=== PATIENT | female | born 1975 | race African-American/Black ===

== ENCOUNTER 2016-09-01 21:01 | Emergency (ER) | payer MEDICARE, MEDICAID ==
--- NOTE | 2016-09-01 21:29 | ER Document Report ---
ED Medical Screen (RME) - General Stated Complaint: BOWEL CONCERNS Notes: patient is a 41 year old female with previous history of constipation with SBO. Patient admits to abdominal pain with distension, vomiting. Last Bm was two weeks ago. has been taking PO OTC agents which havent helped I have greeted and performed a rapid initial assessment of this patient. A comprehensive ED assessment and evaluation of the patient, analysis of test results and completion of the medical decision making process will be conducted by additional ED providers.
[2016-09-01] MEDS ORDERED: ONDANSETRON 4 MG TAB.RAPDIS PO ONE (21:30)
--- NOTE | 2016-09-01 22:49 | ER Document Report ---
ED GI/ - General Chief Complaint: Abdominal Pain Stated Complaint: BOWEL CONCERNS Time seen by provider: 22:49 Mode of Arrival: Ambulatory Information source: Patient Notes: 41 yo female c/o generalized abd. pain 4/5, sharp, constant, more on the right side getting worse for 3 weeks. Started at umbilicus and settled on the right side the most, but duller on the left. Constipation dx by her gastric bypass 8- , 3. days ago based on the sever obstipation on the xray. She was referred to GI MD but not seen yet. He was worried that she may need partial colectomy. Only had small ball in 3 weeks. No fever. Now vomiting when tries to eat, stays down only 5 minutes. C section 1990. Hx htn. left port a cath due to bad veins. LMP 1.5 weeks ago (condoms) TRAVEL OUTSIDE OF THE [place] IN LAST 30 DAYS: No - Related Data Allergies/Adverse Reactions: No Known Allergies Allergy (Unverified 09/01/16 21:30) Past Medical History - General Information source: Patient - Social History Smoking Status: Never Smoker Chew tobacco use (# tins/day): No Frequency of alcohol use: None Drug Abuse: None Lives with: Spouse/Significant other Family History: Reviewed & Not Pertinent Patient has suicidal ideation: No Patient has homicidal ideation: No - Past Medical History Cardiac Medical History: Reports: Hx Hypertension Renal/ Medical History: Denies: Hx Peritoneal Dialysis Past Surgical History: Reports: Hx Section, Hx Gastric Bypass Surgery Review of Systems - Review of Systems Constitutional: No symptoms reported EENT: No symptoms reported Cardiovascular: No symptoms reported Respiratory: No symptoms reported Gastrointestinal: See HPI Genitourinary: No symptoms reported Female Genitourinary: No symptoms reported Musculoskeletal: No symptoms reported Skin: No symptoms reported Hematologic/Lymphatic: No symptoms reported Neurological/Psychological: No symptoms reported Physical Exam - Vital signs Vitals: Temp Pulse BP Pulse Ox 98.3 F 78 152/76 H 100 09/01/16 21:24 09/01/16 21:24 09/01/16 21:24 09/01/16 21:24 Interpretation: Normal - General General appearance: Appears well, Alert - HEENT Head: Normocephalic, Atraumatic Eyes: Normal Pupils: PERRL - Respiratory Respiratory status: No respiratory distress Chest status: Nontender Breath sounds: Normal Chest palpation: Normal - Cardiovascular Rhythm: Regular Heart sounds: Normal auscultation Murmur: No - Abdominal Inspection: Normal Distension: No distension. No: Distended Bowel sounds: Normal Tenderness: Tender - dram Organomegaly: No organomegaly. No: Hepatomegaly, Splenomegaly - Back Back: Normal, Nontender. No: CVA tenderness - Extremities General upper extremity: Normal inspection, Nontender, Normal color, Normal ROM , Normal temperature General lower extremity: Normal inspection, Nontender, Normal color, Normal ROM , Normal temperature, Normal weight bearing. No: Arnie's sign - Neurological Neuro grossly intact: Yes Cognition: Normal Orientation: AAOx4 [place] Coma Scale Eye Opening: Spontaneous [place] Coma Scale Verbal: Oriented [place] Coma Scale Motor: Obeys Commands [place] Coma Scale Total: 15 Speech: Normal Motor strength normal: LUE, RUE, LLE, RLE Sensory: Normal - Psychological Associated symptoms: Normal affect, Normal mood - Skin Skin Temperature: Warm Skin Moisture: Dry Skin Color: Normal Course - Re-evaluation Re-evalutation: 09/01/16 23:40 consult tori salazar for CT abd and pelvis 09/02/16 00:20 CBC is normal, specific gravity of urine is 1.015, test is negative. 09/02/16 03:17 CT scan is negative. There is no obstruction or appendicitis no free fluid. This to the patient and she will follow-up with her gastric bypass doctor and we have talked about starting MiraLAX every day - Vital Signs Vital signs: Temp Pulse Resp BP Pulse Ox 98.3 F 78 16 152/76 H 100 09/01/16 21:27 09/01/16 21:27 09/01/16 21:27 09/01/16 21:27 09/01/16 21:27 - Laboratory Result Diagrams: 09/01/16 23:35 09/01/16 23:35 Laboratory results interpreted by me: 09/01/16 09/01/16 23:35 23:35 Hgb 10.8 L Hct 32.7 L MCV 76 L MCH 24.9 L RDW 16.0 H Seg Neutrophils % 41.3 L Chloride 109 H Discharge - Discharge Clinical Impression: Abdominal pain Qualifiers: Abdominal location: generalized Qualified Code(s): R10.84 - Generalized abdominal pain Condition: Good Disposition: HOME, SELF-CARE Instructions: Abdominal Pain ([facility]) Additional Instructions: Take one capful of MiraLAX daily mixed with water Plenty of water daily Return to the emergency room if worse Copy of lab work and CT scan given to you. Please complete the patient satisfaction survey if you get one, and return it.. If you do not receive a survey, then you can go to the [facility] website, [email or web address] and place your comments about your very good care. Thank you very much. It was a pleasure being your medical provider today.
[2016-09-01] MEDS ORDERED: NORMAL SALINE 1000 ML 1,000 ML IV ONE (23:00)
[2016-09-01 23:43] LABS: APPEARANCE,URINE CLEAR; BILIRUBIN,URINE NEGATIVE (NEGATIVE); GLUCOSE, URINE NEGATIVE (NEGATIVE); KETONES,URINE NEGATIVE (NEGATIVE); LEUKOCYTE ESTERASE,URINE NEGATIVE (NEGATIVE); NITRITE,URINE NEGATIVE (NEGATIVE); PROTEIN,URINE NEGATIVE (NEGATIVE); URINE SPECIFIC GRAVITY 1.015; UROBILINOGEN,URINE NEGATIVE mg/dL (<2.0)
[2016-09-01 23:55] LABS: ABSOLUTE BASOPHILS # (AUTO) 0.1 10^3/uL (0.0-0.2); ABSOLUTE EOSINOPHILS # (AUTO) 0.3 10^3/uL (0.0-0.6); ABSOLUTE LYMPHOCYTES (AUTO) 2.2 10^3/uL (0.5-4.7); ABSOLUTE MONOCYTES (AUTO) 0.5 10^3/uL (0.1-1.4); ABSOLUTE NEUT (AUTO) 2.1 10^3/uL (1.7-8.2); BASOPHILS % (AUTO) 1.2 % (0-2); EOSINOPHILS % (AUTO) 5.1 % (0-6); HEMATOCRIT 32.7 % (36.0-47.0); HEMOGLOBIN 10.8 g/dL (12.0-15.5); HGB HCT DIFFERENCE -0.3; LYMPHOCYTES % (AUTO) 42.9 % (13-45); MEAN CORPUSCULAR HEMOGLOBIN 24.9 pg (27.0-33.4); MEAN CORPUSCULAR HGB CONC 32.9 g/dL (32.0-36.0); MEAN CORPUSCULAR VOLUME 76 fl (80-97); MONOCYTES % (AUTO) 9.5 % (3-13); RED BLOOD COUNT 4.32 10^6/uL (3.72-5.28); SEGMENTED NEUTROPHILS % (AUTO) 41.3 % (42-78); WHITE BLOOD COUNT 5.1 10^3/uL (4.0-10.5)
[2016-09-02] MEDS ORDERED: ONDANSETRON HCL INJ/PF 4 MG/2 ML SDV IV ONE (00:47)
[2016-09-02] MEDS ORDERED: MORPHINE SULFATE 10 MG/ML INJ IV ONE (00:47)
[2016-09-02 01:02] LABS: ALANINE AMINOTRANSFERASE 36 U/L (9-52); ALBUMIN 3.8 g/dL (3.5-5.0); ALKALINE PHOSPHATASE 73 U/L (38-126); ANION GAP 8 (5-19); ASPARTATE AMINO TRANSFERASE 22 U/L (14-36); BILIRUBIN,TOTAL 0.4 mg/dL (0.2-1.3); BLOOD UREA NITROGEN 17 mg/dL (7-20); CALCIUM 9.3 mg/dL (8.4-10.2); CARBON DIOXIDE 25 mmol/L (22-30); CHLORIDE 109 mmol/L (98-107); CREATININE RESULT 0.92 mg/dL (0.52-1.25); GLUCOSE 77 mg/dL (75-110); LIPASE 240.9 U/L (23-300); POTASSIUM 3.9 mmol/L (3.6-5.0); SODIUM 141.6 mmol/L (137-145); TOTAL PROTEIN 6.3 g/dL (6.3-8.2)
[2016-09-02 04:42] VITALS: BP 131/83
== END 2016-09-02 04:05 | disposition home or self-care (01) ==
LOC: ER 21:01
DX: R10.84 Generalized abdominal pain (principal); K59.00 Constipation, unspecified; I10 Essential (primary) hypertension; Z32.02 Encounter for pregnancy test, result negative; Z98.84 Bariatric surgery status
CPT/HCPCS: 99284; 96361; 96374; 36415; 83690; 85025; 81025; 80053; 81001; 74160; A9270; J2270; J7030; S0119